=== PATIENT | female | born 1980 | race Caucasian/White ===

== ENCOUNTER 2016-07-20 21:25 | Emergency (ER) | payer MEDICAID ==
[2016-07-20 21:26] VITALS: BMI 27.4
[2016-07-20 21:44] VITALS: BP 99/66; PULSE 87; RESP 16; O2SAT 99
[2016-07-20] MEDS ORDERED: Sodium Chloride 0.9% 1,000 ML IV STA (22:15)
--- NOTE | 2016-07-20 22:15 | ED PDOC ---
HPI: Abdomen Time Seen by Provider: 07/20/16 21:47 Chief Complaint (Nursing): Abdominal Pain Chief Complaint (Provider): Abdominal Pain History Per: Patient Additional Complaint(s): Pt is a 36 yo female,PMH of PCOS, presents to ED at 11 weeks , , with complaints of heart burn, epigastric abdominal pain, RUQ abdominal pain, LLQ abdominal pain, dizziness and nausea. Of note, pt was diagnosed with a UTI last week and was started on Macrobid. Pt took only 2 days if meds and then stopped her antibiotics bc she was nauseous. no fever or chills. no back pain Past Medical History Reviewed: Nursing Documentation, Vital Signs Vital Signs: Last Vital Signs Temp 99.5 F 07/20/16 21:40 Pulse 87 07/20/16 21:40 Resp 16 07/20/16 21:40 BP 99/66 L 07/20/16 21:40 Pulse Ox 99 07/20/16 22:16 - Medical History PMH: Depression Denies: Diabetes, Hepatitis, HIV, HTN, Chronic Kidney Disease, Seizures, Sexually Transmitted Disease - Surgical History Surgical History: Cholecystectomy - Family History Family History: States: No Known Family Hx - Living Arrangements Living Arrangements: With Family - Social History Current smoker - smoking cessation education provided: No Alcohol: None Drugs: Denies - Immunization History Hx Tetanus Toxoid Vaccination: No Hx Influenza Vaccination: No Hx Pneumococcal Vaccination: No - Home Medications Home Medications: Ambulatory Orders Medication Instructions Recorded traMADol [Ultram] 50 mg PO TID PRN 12/20/15 Nitrofurantoin Macrocrystals 100 mg PO BID #14 cap 06/12/16 [Macrobid] Cephalexin [Keflex] 500 mg PO BID #14 capsule 06/22/16 Nitrofurantoin Macrocrystals 100 mg PO BID #20 cap 07/10/16 [Macrobid] Doxylamine/Pyridoxine HCl (B6) 1 each PO HS #10 tablet. 07/21/16 [Monisha Jay 10-10 mg Tablet] - Allergies Allergies/Adverse Reactions: Allergies Allergy/AdvReac Type Severity Reaction Status Date / Time No Known Allergies Allergy Verified 07/20/16 21:40 Review of Systems ROS Statement: Except As Marked, All Systems Reviewed And Found Negative Gastrointestinal: Positive for: Nausea, Abdominal Pain Neurological: Positive for: Dizziness Physical Exam - Reviewed Nursing Documentation Reviewed: Yes Vital Signs Reviewed: Yes - Physical Exam Appears: Positive for: Well, Non-toxic, No Acute Distress Head Exam: Positive for: ATRAUMATIC, NORMAL INSPECTION, NORMOCEPHALIC Skin: Positive for: Normal Color, Warm, DRY Eye Exam: Positive for: EOMI, Normal appearance, PERRL ENT: Positive for: Normal ENT Inspection Neck: Positive for: Normal, Painless ROM Cardiovascular/Chest: Positive for: Regular Rate, Rhythm Respiratory: Positive for: CNT, Normal Breath Sounds Gastrointestinal/Abdominal: Positive for: Normal Exam, Bowel Sounds, Soft Back: Positive for: Normal Inspection Extremity: Positive for: Normal ROM Neurologic/Psych: Positive for: Alert, Oriented - Laboratory Results Result Diagrams: 07/20/16 23:19 07/20/16 23:19 - ECG O2 Sat by Pulse Oximetry: 99 Medical Decision Making Medical Decision Making: IV access established and treatment initiated with Zofran and IVF Labs resulted and reviewed with Pt who demonstrated full understanding Pt advised to continue on Macrobid, reports she has 3 days left. Pt given RX for Ryanlegis and advised to follow up with [facility] Return to ED if at anytime condition worsens Disposition - Clinical Impression Clinical Impression: -related symptom, UTI (urinary tract infection) - Patient ED Disposition Is Patient to be Admitted: No - Disposition Disposition: Routine/Home Disposition Time: 02:21 Condition: STABLE Prescriptions: Doxylamine/Pyridoxine HCl (B6) [Monisha Jay 10-10 mg Tablet] 1 each PO HS #10 tablet. Instructions: Abdominal Pain in (ED)
[2016-07-20 23:28] LABS: BASO % 0.4 % (0.0-2.0); EOS # 0.1 K/uL (0.0-0.7); LYMPH # 2.5 K/uL (1.0-4.3); LYMPH % 27.3 % (20.0-40.0); MEAN CELL VOLUME 92.6 fl (81.0-99.0); MEAN CORPUSCULAR HEMOGLOBIN 30.9 pg (27.0-31.0); MEAN CORPUSCULAR HGB CONC 33.3 g/dL (33.0-37.0); MEAN PLATELET VOLUME 8.8 fl (7.2-11.7); MONO # 0.6 K/uL (0.0-0.8); NEUT # 5.9 K/uL (1.8-7.0); NEUT % 64.3 % (50.0-75.0); RED CELL DISTRIBUTION WIDTH 13.7 % (11.5-14.5); WHITE BLOOD COUNT 9.2 K/uL (4.8-10.8)
[2016-07-20 23:33] LABS: RBC URINE 3 /hpf (0-3); URINE BILIRUBIN NEGATIVE (NEGATIVE); URINE BLOOD NEGATIVE (NEGATIVE); URINE COLOR YELLOW (YELLOW); URINE GLUCOSE (UA) NEG (Normal); URINE KETONE NEGATIVE (NEGATIVE); URINE LEUKOCYTE ESTERASE NEG Leu/uL (Negative); URINE PROTEIN NEGATIVE (NEGATIVE); URINE UROBILINOGEN 0.2-1.0 mg/dL (0.2-1.0); WBC URINE 10 /hpf (0-5)
[2016-07-20 23:37] LABS: ALB/GLOB RATIO 1.5 (1.0-2.1); ALKALINE PHOSPHATASE 60 U/L (38-126); ALT/SGPT 23 U/L (9-52); AST/SGOT 22 U/L (14-36); BILIRUBIN,TOTAL < 0.1 mg/dl (0.2-1.3); BLOOD UREA NITROGEN 15 mg/dl (7-17); CALCIUM 9.4 mg/dL (8.4-10.2); CARBON DIOXIDE 23 mmol/L (22-30); CHLORIDE 104 mmol/L (98-107); GFR AFRICAN-AMERICAN > 60; GLUCOSE,RANDOM 97 mg/dL (65-105); LIPASE 135 U/L (23-300); POTASSIUM 3.9 MMOL/L (3.6-5.0); SODIUM 137 mmol/l (132-148); TOTAL PROTEIN 6.6 G/DL (6.3-8.2)
--- NOTE | 2016-07-20 23:42 | US ---
EXAM: US Uterus, Limited CLINICAL HISTORY: 36 years old, female; Pain; Other: Abd pain; Gestational age or lmp: 04/30/16; ; Additional info: Abdoiminal pain TECHNIQUE: Real-time ultrasound of the maternal uterus (limited) with image documentation. COMPARISON: No relevant prior studies available. FINDINGS: Fetus: Single live intrauterine gestation is present. [place]-rump length measures 4.2 CM compatible with an estimated ultrasound age of 11.1 weeks. Mean sac diameter measures 5.0 CM. Heart rate: heart motion is observed at 162 beats per minute. Cervix: Cervix measures 4.3 CM and appears closed. Adnexa: The right ovaries not adequately visualized. Left ovary appears unremarkable. Left ovary demonstrates normal wave forms without evidence for torsion. IMPRESSION: 1. Cervix measures 4.3 CM and appears closed. 2. Single live intrauterine gestation is present. [place]-rump length measures 4.2 CM compatible with an estimated ultrasound age of 11.1 weeks. 3. heart motion is observed at 162 beats per minute. 4. No acute abnormalities identified.
--- NOTE | 2016-07-20 23:54 | US ---
EXAM: US Abdomen Limited, Right Upper Quadrant CLINICAL HISTORY: 36 years old, female; Pain; Abdominal pain; Epigastric; ; Prior surgery; Surgery date: 6+ months; Surgery type: S/o cholecystectomy 12/11; Additional info: Ruq/epigastric pain TECHNIQUE: Real-time ultrasound of the right upper quadrant with image documentation. COMPARISON: No relevant prior studies available. FINDINGS: Liver: Liver demonstrates slightly increased echogenicity as can be seen in fatty infiltration or hepatocellular disease. There are no focal liver lesions present. Portal vein demonstrates hepatopetal flow. Gallbladder: There has been a cholecystectomy. Common bile duct: Unremarkable as visualized. No stones. No dilation. Pancreas: The pancreas is normal. Right kidney: The right kidney is normal. No stones. No hydronephrosis. IMPRESSION: 1. There has been a cholecystectomy. 2. Liver demonstrates slightly increased echogenicity as can be seen in fatty infiltration or hepatocellular disease.
[2016-07-21 02:27] VITALS: TEMP 99
== END 2016-07-21 02:06 | disposition home or self-care (01) ==
LOC: H.ER 21:25
DX: O23.40 Unspecified infection of urinary tract in pregnancy, unspecified trimester (principal); Z3A.11 11 weeks gestation of pregnancy; F32.9 Major depressive disorder, single episode, unspecified; Z90.49 Acquired absence of other specified parts of digestive tract

== ENCOUNTER 2016-07-26 16:12 | Emergency (ER) | payer MEDICAID ==
[2016-07-26 16:12] VITALS: BMI 27.4
[2016-07-26 16:27] VITALS: RESP 16; TEMP 98.7; O2SAT 100
--- NOTE | 2016-07-26 17:31 | ED PDOC ---
HPI: Female Pain Time Seen by Provider: 07/26/16 17:18 Chief Complaint (Nursing): Abdominal Pain Chief Complaint (Provider): pelvic cramping History Per: Patient History/Exam Limitations: no limitations Onset/Duration Of Symptoms: Hrs (x 3) Current Symptoms Are (Timing): Intermittent Episodes Quality Of Discomfort: Cramping, Other (pinching ) Additional Complaint(s): Kayy Boone is a 36 year old female, with a previous medical history of PCOS , who is currently 12 weeks and presents to the ED for the evaluation of intermittent episodes of pelvic cramping associated with back pain secondary to getting into an argument with her mother 3 hours prior to arrival. Patient denies any vaginal bleeding, vomiting nausea, dizziness or urinary symptoms. Patient was seen in the ED on 07/20/16 where a pelvic ultra sound was preformed. No chest pain, dyspnea. No weakness. OBGYN: Dr. Amador Abnormal Vaginal Bleeding: No Past Medical History Reviewed: Historical Data, Nursing Documentation, Vital Signs Vital Signs: Last Vital Signs Temp 98.7 F 07/26/16 16:25 Pulse 92 H 07/26/16 16:25 Resp 16 07/26/16 16:25 BP 109/59 L 07/26/16 16:25 Pulse Ox 100 07/26/16 16:25 - Medical History PMH: Depression Denies: Diabetes, Hepatitis, HIV, HTN, Chronic Kidney Disease, Seizures, Sexually Transmitted Disease Other PMH: PCOS - Surgical History Surgical History: Cholecystectomy - Family History Family History: States: Unknown Family Hx - Social History Current smoker - smoking cessation education provided: No Alcohol: None Drugs: Denies - Immunization History Hx Tetanus Toxoid Vaccination: No Hx Influenza Vaccination: No Hx Pneumococcal Vaccination: No - Home Medications Home Medications: Ambulatory Orders Medication Instructions Recorded traMADol [Ultram] 50 mg PO TID PRN 12/20/15 Nitrofurantoin Macrocrystals 100 mg PO BID #14 cap 06/12/16 [Macrobid] Cephalexin [Keflex] 500 mg PO BID #14 capsule 06/22/16 Nitrofurantoin Macrocrystals 100 mg PO BID #20 cap 07/10/16 [Macrobid] Doxylamine/Pyridoxine HCl (B6) 1 each PO HS #10 tablet. 07/21/16 [Monisha Jay 10-10 mg Tablet] - Allergies Allergies/Adverse Reactions: Allergies Allergy/AdvReac Type Severity Reaction Status Date / Time No Known Allergies Allergy Verified 07/26/16 16:25 Review of Systems ROS Statement: Except As Marked, All Systems Reviewed And Found Negative Gastrointestinal: Negative for: Nausea, Vomiting Genitourinary Female: Positive for: Pelvic Pain. Negative for: Dysuria, Frequency, Incontinence, Hematuria, Vaginal Discharge, Vaginal Bleeding Musculoskeletal: Positive for: Back Pain Physical Exam - Reviewed Nursing Documentation Reviewed: Yes Vital Signs Reviewed: Yes - Physical Exam Appears: Positive for: Well, Non-toxic, No Acute Distress Head Exam: Positive for: ATRAUMATIC, NORMAL INSPECTION, NORMOCEPHALIC Skin: Positive for: Normal Color, Warm, DRY Cardiovascular/Chest: Positive for: Regular Rate, Rhythm Respiratory: Positive for: CNT, Normal Breath Sounds Gastrointestinal/Abdominal: Positive for: Bowel Sounds, Soft, Tenderness ( suprapubic mild) Back: Positive for: Normal Inspection. Negative for: L CVA Tenderness, R CVA Tenderness Extremity: Positive for: Normal ROM. Negative for: Tenderness, Pedal Edema Neurologic/Psych: Positive for: Alert, Oriented - ECG O2 Sat by Pulse Oximetry: 100 (RA) Pulse Ox Interpretation: Normal Medical Decision Making Medical Decision Making: Initial Impression: pelvic pain Initial Plan: * urine dipstick * Tylenol * check pulse * reevaluation 07/20/16 Obstetrics US FINDINGS: Fetus: Single live intrauterine gestation is present. [place]-rump length measures 4.2 CM compatible with an estimated ultrasound age of 11.1 weeks. Mean sac diameter measures 5.0 CM. Heart rate: heart motion is observed at 162 beats per minute. Cervix: Cervix measures 4.3 CM and appears closed. Adnexa: The right ovaries not adequately visualized. Left ovary appears unremarkable. Left ovary demonstrates normal wave forms without evidence for torsion. IMPRESSION: 1. Cervix measures 4.3 CM and appears closed. 2. Single live intrauterine gestation is present. [place]-rump length measures 4.2 CM compatible with an estimated ultrasound age of 11.1 weeks. 3. heart motion is observed at 162 beats per minute. 4. No acute abnormalities identified. Scribe Attestation: Documented by Taina Brink, acting as a scribe for Sumit Villanueva MD. Provider Scribe Attestation: All medical record entries made by the Scribe were at my direction and personally dictated by me. I have reviewed the chart and agree that the record accurately reflects my personal performance of the history, physical exam, medical decision making, and the department course for this patient. I have also personally directed, reviewed, and agree with the discharge instructions and disposition. 1834: Pt. stable. Pain free. Tolerated po. Fu with pcp. Disposition - Clinical Impression Clinical Impression: - Patient ED Disposition Is Patient to be Admitted: No Counseled Patient/Family Regarding: Studies Performed, Diagnosis, Need For Followup - Disposition [facility] - 07[facility]28/16 Disposition: Routine/Home Disposition Time: 18:37 Condition: STABLE Additional Instructions: Return if not better in 3 days. Instructions: (ED)
[2016-07-26 18:51] VITALS: BP 122/65; PULSE 82
== END 2016-07-26 18:47 | disposition home or self-care (01) ==
LOC: H.ER 16:12
DX: Z3A.11 11 weeks gestation of pregnancy (principal); M54.9 Dorsalgia, unspecified; E28.2 Polycystic ovarian syndrome; F32.9 Major depressive disorder, single episode, unspecified

== ENCOUNTER 2016-08-04 22:29 | Emergency (ER) | payer MEDICAID ==
[2016-08-04 22:29] VITALS: BMI 27.4
[2016-08-04 22:45] VITALS: BP 107/66; PULSE 94; RESP 16; TEMP 98.8; O2SAT 99
--- NOTE | 2016-08-04 23:06 | ED PDOC ---
HPI: General Adult Time Seen by Provider: 08/04/16 22:58 Chief Complaint (Nursing): Abdominal Pain Chief Complaint (Provider): with abd pain History Per: Patient Additional Complaint(s): 36-year-old female, presents to emergency department with generalized abdominal pain that started earlier today. Patient states she urinated and then noticed pain but in lower abdomen. She denies fever or chills, she denies any vaginal bleeding. No associated nausea, vomiting, constipation or diarrhea. Patient states she is currently 14 weeks. Past Medical History Reviewed: Historical Data, Nursing Documentation, Vital Signs Vital Signs: Last Vital Signs Temp 98.8 F 08/04/16 22:43 Pulse 94 H 08/04/16 22:43 Resp 16 08/04/16 22:43 BP 107/66 08/04/16 22:43 Pulse Ox 99 08/05/16 01:32 - Medical History PMH: Depression - Surgical History Surgical History: Cholecystectomy - Family History Family History: States: No Known Family Hx - Living Arrangements Living Arrangements: With Family - Social History Current smoker - smoking cessation education provided: No Ex-Smoker (has not smoked in the last 12 months): Yes (quit several months ago when she became ) Alcohol: None Drugs: Denies - Home Medications Home Medications: Ambulatory Orders Medication Instructions Recorded traMADol [Ultram] 50 mg PO TID PRN 12/20/15 Nitrofurantoin Macrocrystals 100 mg PO BID #14 cap 06/12/16 [Macrobid] Cephalexin [Keflex] 500 mg PO BID #14 capsule 06/22/16 Nitrofurantoin Macrocrystals 100 mg PO BID #20 cap 07/10/16 [Macrobid] Doxylamine/Pyridoxine HCl (B6) 1 each PO HS #10 tablet. 07/21/16 [Monisha Jay 10-10 mg Tablet] Nitrofurantoin Macrocrystals 100 mg PO BID #14 cap 08/05/16 [Macrobid] - Allergies Allergies/Adverse Reactions: Allergies Allergy/AdvReac Type Severity Reaction Status Date / Time No Known Allergies Allergy Verified 07/26/16 16:25 Review of Systems ROS Statement: Except As Marked, All Systems Reviewed And Found Negative Gastrointestinal: Positive for: Abdominal Pain. Negative for: Nausea, Vomiting Genitourinary Female: Negative for: Dysuria, Frequency, Incontinence, Hematuria , Vaginal Discharge, Vaginal Bleeding Physical Exam - Reviewed Nursing Documentation Reviewed: Yes Vital Signs Reviewed: Yes - Physical Exam Appears: Positive for: Well, Non-toxic, No Acute Distress Skin: Negative for: Rash Eye Exam: Positive for: Normal appearance Cardiovascular/Chest: Positive for: Regular Rate, Rhythm Respiratory: Positive for: Normal Breath Sounds Gastrointestinal/Abdominal: Positive for: Other (gravid nontender abdomen) Back: Negative for: L CVA Tenderness, R CVA Tenderness Extremity: Positive for: Normal ROM. Negative for: Pedal Edema Neurologic/Psych: Positive for: Alert, Oriented - Laboratory Results Urine POC: Positive Urine dip results: Positive for: Leukocyte Esterase (trace), Blood (trace). Negative for: Nitrate, Ketones, Glucose, Bilirubin, Protein - ECG O2 Sat by Pulse Oximetry: 99 Pulse Ox Interpretation: Normal - Other Rad OB US X-Ray: Read By Radiologist X-Ray Interpretation: see below Medical Decision Making Medical Decision Makin36 year old female with abdominal pain Plan: UA OB US US: FINDINGS: Fetus: Single live intrauterine gestation. Heart rate: heart rate of 146 beats per minute. Presentation: Cephalic. Placenta: Posterior. No placenta previa or abruption. Amniotic fluid: Normal. Anatomy: No gross anomaly is appreciated. BIOMETRICS Gestational age by US: Estimated gestational age of 13 weeks 5 days by measurements. EFW: Estimated weight of 77 g. BPD: 2.4 cm, correlating with 14 weeks 1 day. HC: 8.7 cm, correlating with 13 weeks 6 days. AC: 6.9 cm, correlating with 13 weeks 4 days. FL: 1.2 cm, correlating with 13 weeks 3 days. MATERNAL: Uterus: Unremarkable. No myometrial mass. Cervix: No cervical dilatation or effacement. Adnexa: Normal ovaries. No adnexal masses. Free fluid: No significant free fluid. IMPRESSION: 1. Single live intrauterine gestation. 2. Incidental/non-acute findings are described above. Patient is aware of all diagnostic testing results. All questions answered. Patient given prescription for Macrobid for UTI. She was instructed to take Tylenol for pain as needed and to follow-up with her environmental technical officer in 1-2 days. Disposition - Clinical Impression Clinical Impression: Abdominal pain during , UTI (urinary tract infection) - Patient ED Disposition Is Patient to be Admitted: No Counseled Patient/Family Regarding: Studies Performed, Diagnosis, Need For Followup, Rx Given - Disposition [facility] Disposition: Routine/Home Disposition Time: 01:30 Condition: STABLE Additional Instructions: Take rx meds as directed. Tylenol as needed for pain. Follow up with your environmental technical officer on Sunday. Prescriptions: Nitrofurantoin Macrocrystals [Macrobid] 100 mg PO BID #14 cap Instructions: Urinary Tract Infection in Women (DC), Abdominal Pain in (ED) Results - Lab Results Lab Results: 08/05/16 00:20 Urine Color Yellow Urine Clarity Slighty-cloudy Urine pH 6.0 Ur Specific [place] 1.027 Urine Protein Negative Urine Glucose (UA) 50 Urine Ketones Trace Urine Blood Negative Urine Nitrate Negative Urine Bilirubin Negative Urine Urobilinogen 0.2-1.0 Ur Leukocyte Esterase Small Urine RBC (Auto) 4 H Urine Microscopic WBC 17 H Ur Squamous Epith Cells 18 H Urine Bacteria Rare
[2016-08-05 00:49] LABS: RBC URINE 4 /hpf (0-3); URINE BACTERIA RARE (<OCC); URINE BILIRUBIN NEGATIVE (NEGATIVE); URINE BLOOD NEGATIVE (NEGATIVE); URINE COLOR YELLOW (YELLOW); URINE GLUCOSE (UA) 50 mg/dL (Normal); URINE KETONE TRACE mg/dL (NEGATIVE); URINE LEUKOCYTE ESTERASE SMALL Leu/uL (Negative); URINE PROTEIN NEGATIVE (NEGATIVE); URINE UROBILINOGEN 0.2-1.0 mg/dL (0.2-1.0); WBC URINE 17 /hpf (0-5)
--- NOTE | 2016-08-05 01:38 | US ---
EXAM: US After First Trimester, Transabdominal CLINICAL HISTORY: 36 years old, female; Pain; complicated by abdominal or pelvic pain; Generalized abdominal pain; Second trimester; Gestational age or lmp: 04/30/2016; ; Additional info: Approx 14 weeks, abd pain TECHNIQUE: Real-time transabdominal obstetrical ultrasound of the maternal pelvis and a second or third trimester with image documentation. COMPARISON: US - OB , LIMITED 07/20/2016 10:59:48 PM FINDINGS: Fetus: Single live intrauterine gestation. Heart rate: heart rate of 146 beats per minute. Presentation: Cephalic. Placenta: Posterior. No placenta previa or abruption. Amniotic fluid: Normal. Anatomy: No gross anomaly is appreciated. BIOMETRICS Gestational age by US: Estimated gestational age of 13 weeks 5 days by measurements. EFW: Estimated weight of 77 g. BPD: 2.4 cm, correlating with 14 weeks 1 day. HC: 8.7 cm, correlating with 13 weeks 6 days. AC: 6.9 cm, correlating with 13 weeks 4 days. FL: 1.2 cm, correlating with 13 weeks 3 days. MATERNAL: Uterus: Unremarkable. No myometrial mass. Cervix: No cervical dilatation or effacement. Adnexa: Normal ovaries. No adnexal masses. Free fluid: No significant free fluid. IMPRESSION: 1. Single live intrauterine gestation. 2. Incidental/non-acute findings are described above.
== END 2016-08-05 02:17 | disposition home or self-care (01) ==
LOC: H.ER 22:29
DX: O23.40 Unspecified infection of urinary tract in pregnancy, unspecified trimester (principal)